=== PATIENT | male | born 1990 | race Caucasian/White ===

== ENCOUNTER 2016-11-13 09:12 | Emergency (ER) | payer SELFPAY ==
[~2016-11-13] VITALS: Ht 170.2 cm; Wt 65.3 kg
[2016-11-13 09:22] VITALS: BP 134/82; PULSE 79; RESP 16; TEMP 98.2; O2SAT 98
[2016-11-13] MEDS ORDERED: PERM5CRE TOPICAL (09:30)
--- NOTE | 2016-11-13 09:33 | PD ---
HPI Chief Complaint: Skin Problem Time Seen by Provider: 09:21 Travel History International Travel<30 days: No Contact w/Intl Traveler<30days: No Traveled to known affect area: No History of Present Illness HPI This patient complains of itchy rash. He has history of scabies in the past and this feels looks the same to him. Duration 3 days. Symptoms severity is moderate. It's worse at night. PFSH Past Medical History Gastrointestinal Disorders: Yes (CROHNS DISEASE) Immunizations Current: Yes Past Surgical History Abdominal Surgery: Yes (BOWEL RESECTION) Social History Alcohol Use: Yes (OCCASIONAL) Tobacco Use: Yes (2 PPD) Substance Use: Yes (OCCASIONAL THC) Allergies-Medications (Allergen,Severity, Reaction): Coded Allergies: No Known Allergies (Unverified , 11/13/16) Reported Meds & Prescriptions Reported Meds & Active Scripts Active No Active Prescriptions or Reported Medications Review of Systems General / Constitutional: No: Fever HENT: No: Headaches Cardiovascular: No: Chest Pain or Discomfort Physical Exam Narrative Psych: Normal mood and affect. Normal insight and judgment. SKIN: Focused skin assessment reveals small scabbed areas on the extremities without ulcer or nodule. Skin is warm and dry. Palpation shows no induration or nodules. Rash is fairly nonspecific Data Data Last Documented VS Vital Signs Date Time Temp Pulse Resp B/P (MAP) Pulse Ox O2 Delivery O2 Flow Rate FiO2 11/13/16 09:22 98.2 79 16 134/82 (99) 98 MDM Medical Decision Making Medical Screen Exam Complete: Yes Emergency Medical Condition: Yes Medical Record Reviewed: Yes Differential Diagnosis Scabies, contact dermatitis, bedbugs Narrative Course I have reviewed the patient's electronic medical record. Patient desires scabies treatment. I written some promethazine cream. He should follow-up with his physician. Diagnosis Primary Impression: Rash and nonspecific skin eruption Additional Instructions: The patient was advised to follow up with their physician and return if they worsen. Hot water wash your linens/clothes Med/Other Pt SpecificInfo: Prescription(s) given Scripts Permethrin Topical 5% (Permethrin Topical 5%) 5% Cream 1 APPLIC TOPICAL ONCE for Scabies, #1 TUBE 0 Refills Prov: Edd Ford MD 11/13/16 Disposition: 01 DISCHARGE HOME Condition: Stable Edd Ford MD Nov 13, 2016 09:33
== END 2016-11-13 09:40 | disposition home or self-care (01) ==
LOC: PHED 09:12
DX: R21 Rash and other nonspecific skin eruption (principal); F17.210 Nicotine dependence, cigarettes, uncomplicated; K50.90 Crohn's disease, unspecified, without complications
CPT/HCPCS: 99283